=== PATIENT | male | born 2000 | race Two or more races ===

== ENCOUNTER 2024-06-14 12:48 | Emergency (ER) | payer OTHER ==
[~2024-06-14] VITALS: Ht 165.1 cm; Wt 70.3 kg
[2024-06-14] MEDS ORDERED: KETOROLAC TROMETHAMINE 60 MG VIAL IM ONE ×2 (14:12→14:15)
[2024-06-14] MEDS ORDERED: ORPHENADRINE CITRATE 30 MG/ML AMPUL ONE (14:12)
[2024-06-14] MEDS ORDERED: ORPHENADRINE CITRATE 30 MG/ML AMPUL IM ONE (14:15)
[2024-06-14] MEDS ORDERED: KETO10TA2 PO (15:30)
[2024-06-14] MEDS ORDERED: NORFLEX100MG PO (15:30)
== END 2024-06-14 15:47 | disposition home or self-care (01) ==
LOC: ER 12:49
DX: M54.9 Dorsalgia, unspecified (principal)